=== PATIENT | male | born 1970 | race Two or more races ===

== ENCOUNTER 2024-03-28 05:55 | Day surgery (SDC) | payer OTHER, BC, SELFPAY ==
[2024-03-28 06:10] VITALS: BMI 37.9
[2024-03-28 06:17] VITALS: BP 165/73
[2024-03-28 06:26] VITALS: BMI 37.9
[2024-03-28] MEDS: NORMOSOL-R 1000 IV (06:34)
[2024-03-28] MEDS: CELEBREX 200 MG PO (06:34)
[2024-03-28] MEDS: TYLENOL 1000 MG PO (06:34)
[2024-03-28 07:40] VITALS: BP 171/69
[2024-03-28 07:48] VITALS: BP 171/69
[2024-03-28 07:55] VITALS: BP 162/65
== END 2024-03-28 08:15 | disposition home or self-care (01) ==
LOC: SDS 05:55
PROVIDERS: ATTENDING PHYSICIAN Student in an Organized Health Care Education/Training Program
DX: M86.172 Other acute osteomyelitis, left ankle and foot (principal); I96 Gangrene, not elsewhere classified
CPT/HCPCS: 28825; 88305; 88311; 87070; 87075; 87147; 87205